=== PATIENT | male | born 1980 | race Caucasian/White ===

== ENCOUNTER 2024-03-04 23:01 | Emergency (ER) | payer MEDICAID, SELFPAY ==
[2024-03-04 23:04] VITALS: BP 130/86; PULSE 96; RESP 20; TEMP 36.9; O2SAT 98; BMI 22.8
--- NOTE | 2024-03-04 23:13 | XR_ITS ---
PROCEDURE INFORMATION: Exam: XR Right Hand Exam date and time: 03/04/2024 11:21 PM Age: 43 years old Clinical indication: Injury or trauma; Other: Crushed between fence posts; Other: Pain; Additional info: Crush to tip of 3rd digit 3 weeks ago TECHNIQUE: Imaging protocol: Radiologic exam of the right hand. Views: 3 or more views. COMPARISON: No relevant prior studies available. FINDINGS: Bones/joints: Is a crush fracture of the distal tuft 3rd finger. There is slight ventral displacement of the distal fragments noted on the lateral view. Soft tissues: Soft tissue swelling of the 3rd finger most prominent distally. Other findings: The remainder of the hand is normally aligned and intact. IMPRESSION: Crush fracture distal tuft of the 3rd finger with slight ventral displacement of the distal fragments and associated soft tissue swelling.
--- NOTE | 2024-03-04 23:16 | HMH.EDGENADL ---
Discharge Plan Disposition Patient Disposition: Home, Self-Care Prescriptions Prescriptions: New sulfamethoxazole-trimethoprim 800-160 mg tablet 2 tab PO BID 7 Days Qty: 28 0RF Referrals Follow up/Referrals: Provider,Referral, MD [Primary Care Provider] - See instructions Activity Restrictions/Add. Instructions Additional Instructions/Restrictions: Please call as soon as possible to schedule follow-up with [facility] [place] Office [address] [facility] [address] [place],?[place]?[id number] Please take antibiotics as prescribed for treatment of infection. Clinical Impressions Clinical Impression: Felon of finger of right hand, Closed fracture of tuft of distal phalanx of finger Print Language Print Language: Amharic Discharge ED Provider: Cale Bishop General Adult HPI General Chief complaint: Extremity Injury, Upper Stated complaint: Smashed right middel finger 1mo ago red & hot Time Seen by Provider: 03/04/24 23:05 History of Present Illness HPI narrative: 43-year-old male presents for severe pain and swelling of the right third digit. He reports that he smashed it approximately 3 weeks ago. He initially had some pain and swelling but it was getting better. About 2 days ago the pain got much more severe, and he had significant redness and swelling of the distal phalanx of the right third digit. He reports he does have some pain down into the hand. He denies any fevers at home. Related Data Previous Rx's ?Medication ?Instructions ?Recorded sulfamethoxazole 800 2 tab PO BID 7 days #28 tabs 03/05/24 mg-trimethoprim 160 mg tablet Allergies Allergy/AdvReac Type Severity Reaction Status Date / Time No Known Allergies Allergy Verified 03/04/24 23:25 [facility] Disclaimer: The information contained in this section may have been updated after the patient was seen, as this information can be updated by other users. Social History Smoking Status: Current every day smoker alcohol intake: never current occupational status: other Travel in the last 8 weeks: None ROS Obtained: Yes All systems reviewed & no additional complaints except as documented Physical Exam General General appearance: alert and in no apparent distress Head Head exam: atraumatic and normocephalic Eye Eye exam: Present normal appearance, PERRL and EOMI ENT ENT exam: Present normal oropharynx and normal external ear exam Neck Neck exam: Present normal inspection and full ROM Chest Chest inspection: Present normal inspection and symmetric chest wall rise; Absent tenderness Respiratory Respiratory exam: Present normal lung sounds bilaterally; Absent respiratory distress Cardiovascular Cardiovascular exam: Present regular rate and normal rhythm Abdominal Exam Abdominal exam: Present soft; Absent distention, tenderness or guarding Extremities Exam Extremities exam: Present other (Marked erythema and swelling of the right third distal phalanx. There is a hematoma under the nail bed and appearance of purulence. No significant tenderness of the flexor tendon sheath. The erythema does not extend proximally past the DIP.) Back Exam Back exam: Present normal inspection; Absent tenderness Neurological Exam Neurological exam: Present alert and oriented X3; Absent motor sensory deficit Psychiatric Psychiatric exam: Present normal affect and normal mood Skin Skin exam: Present warm, dry and normal color Lymphatic Lymphatic Findings: no adenopathy Medical Decision Making Medical Records Medical records reviewed: Yes I reviewed the patient's medical records. Screening: Per USPSTF and CDC recommendations, given the prevalence of disease in our region, it is our hospital?s policy to screen for HIV and viral Hepatitis for all patients aged 18 and over and those with ongoing risk factors. Nnamdi Inquiry Pt receiving controlled substance: No Nnamdi was queried for this patient: No Vital Signs: 03/04/24 23:04 03/04/24 23:30 03/05/24 00:00 Temperature 98.4 F Temperature Source Oral Pulse Rate 91 H 99 H Pulse Rate [Right] 96 H Respiratory Rate 20 Blood Pressure 120/76 112/81 Blood Pressure [Left Arm] 130/86 Blood Pressure Mean [Left Arm] 100 Blood Pressure Source [Left Arm] Automatic Cuff 02 Sat by Pulse Oximetry 98 97 96 Oxygen Delivery Method Room Air 03/05/24 00:52 Temperature 98.2 F Temperature Source Pulse Rate 80 Pulse Rate [Right] Respiratory Rate 18 Blood Pressure 131/80 Blood Pressure [Left Arm] Blood Pressure Mean [Left Arm] Blood Pressure Source [Left Arm] 02 Sat by Pulse Oximetry Oxygen Delivery Method Room Air Lab Data Lab results reviewed: Yes I reviewed the patient's lab results. Lab Results 03/04/24 23:16: WBC 9.2, RBC 4.86, Hgb 14.3, Hct 42.3, MCV 86.9, MCH 29.5, MCHC 33.9, RDW 13.4, Plt Count 286, MPV 7.7, Neut % (Auto) 68.6, Lymph % (Auto) 22.4, Hooker % (Auto) 4.5, Eos % (Auto) 3.4, Baso % (Auto) 1.1, Neut # (Auto) 6.3, Lymph # (Auto) 2.1, Hooker # (Auto) 0.4, Eos # (Auto) 0.3, Baso # (Auto) 0.1, ESR 14, Sodium 141, Potassium 4.0, Chloride 102, Carbon Dioxide 27, Anion Gap 16.0 H, BUN 14, Creatinine 1.10, Estimated Creat Clear 85, Estimated GFR 74, Est GFR ( Amer) 89, Glucose 110 H, Calcium 9.2, Total Bilirubin 0.4, AST 28, ALT 19, Alkaline Phosphatase 52, C-Reactive Protein 3.6, Total Protein 7.2, Albumin 4.2, Globulin 3.0, Albumin/Globulin Ratio 1.4 03/04/24 23:16 03/04/24 23:16 Orders (Tests/Meds): ED MEDICATIONS Discontinued Medications Generic Name Dose Route Start Last Admin Trade Name Arabella PRN Reason Stop Dose Admin Acetaminophen 1,000 mg 03/04/24 23:15 03/04/24 23:33 Acetaminophen 500mg Tab PO 03/04/24 23:16 1,000 mg ONCE ONE Administration Ketorolac Tromethamine 30 mg 03/04/24 23:15 03/04/24 23:33 Ketorolac 30mg/Ml Vial IV 03/04/24 23:16 30 mg ONCE ONE Administration Lidocaine HCl 10 ml 03/05/24 00:02 03/05/24 00:03 Lidocaine 1% 10ml Mdv IJ 03/05/24 00:03 10 ml ONCE ONE Administration Morphine Sulfate 4 mg 03/04/24 23:15 03/04/24 23:33 Morphine 4mg/Ml Syringe IV 03/04/24 23:16 4 mg ONCE ONE Administration Trimethoprim/Sulfamethoxazole 2 each 03/05/24 00:39 03/05/24 00:45 Sulfa/Trimethoprim 1 Tablet PO 03/05/24 00:40 2 each ONCE ONE Administration ORDERS Category Date Time Status Hand XR right minimum 3 views [XR hand RT min 3V] Stat Exams 03/04/24 23:13 Completed CBC w/Auto Diff [Complete Blood Count Auto Diff] Stat Lab 03/04/24 23:16 Completed CMP [Comprehensive Metabolic Panel] Stat Lab 03/04/24 23:16 Completed CRP [C-Reactive Protein] Stat Lab 03/04/24 23:16 Completed ESR [Erythrocyte Sedimentation Rate] Stat Lab 03/04/24 23:16 Completed Medical Decision Narrative: 43-year-old male presents with worsening right third distal phalanx redness swelling and pain. He smashed it with a hammer about 3 weeks ago. It was healing but then 2 days ago became severely red, swollen and painful.. History was obtained via interactive discussion with patient. On arrival, patient is [afebrile, hemodynamically stable, satting appropriately, alert, oriented x4, GCS 15], moving all extremities spontaneously. Full physical exam performed and significant for redness and swelling of the right third distal phalanx with subungual hematoma. Differential includes but is not limited to paronychia, felon, flexor tenosynovitis, fracture, dislocation. Patient was given Tylenol, Toradol, morphine for symptomatic management and correction of underlying abnormalities. Workup initiated including CBC CMP ESR CRP radiograph of the right hand. I performed a bedside ultrasound of the hand, I did not see a significant difference in the fluid in the flexor tendon sheath between the right second and third digits, nor did I see an abscess in the pulp of the finger. On re-evaluation, patient [remains afebrile, HD stable.] Laboratory workup independently interpreted by me and significant for normal white count, normal inflammatory markers. Imaging independently interpreted by me and significant for tuft fracture of the right third digit. See radiology read for full review of final results. Transfer for flexor tenosynovitis was considered, but deemed unnecessary due to history and exam. Exam is more consistent with severe paronychia/possible development of felon. I performed a digital block of the finger and unroofed/remove the fingernail with expression of very large volume of pus. Given the expression of pus with fingernail unroofing, I did not proceed with incising the finger pulp. Patient was given double strength Bactrim and discharged in stable condition with instructions to call Nena to schedule follow-up as soon as possible.. He was discharged with prescription for Bactrim and return precautions.. Procedures Risk/Benefits of Procedure(s) Were Explained: Yes Nerve Block Nerve Block 1: Local Anesthetic: lidocaine 1% Amount of anesthesia used (mL): 8 Side: Right Nerve Blocks: digital (Third) Procedure Successful: Yes Patient Tolerated Procedure: well and no complications Complications: none Limited Ultrasound Indication:: Limited soft tissue ultrasound Indication: This pain and swelling of distal right third finger Identified structures: Location: Left third finger Findings: No significant increase in fluid around the flexor tendon sheath compared to second digit. No apparent abscess within the distal tip Impression: Does not appear consistent with flexor tenosynovitis Images were saved to permanent archive The study was technically adequate Soft Tissue CPT Codes: CPT Upper extremity: 91529-18 CPT Other Soft Tissue: 86104-92 This study was performed by me, and I personally interpreted all images/videos. Miscellaneous Procedure Procedure Performed: Procedure: Right third digit fingernail removal, abscess drainage Indication: Infection of the right third distal phalanx Procedure description: Patient was successfully anesthetized with digital block using lidocaine. The fingernail was bluntly dissected with expression of large volume of malodorous purulent material. The wound was copiously irrigated and covered with nonadherent dressing. Procedure was successful. Critical Care Critical Care Time Critical Care Time: No
[2024-03-04 23:29] LABS: Basophils # 0.1 K/mm3 (0-0.2); Basophils % 1.1 % (0.1-2.0); Eosinophils # 0.3 K/mm3 (0.0-0.4); Eosinophils % 3.4 % (0.1-12.0); Hematocrit 42.3 % (42.0-52.0); Hemoglobin 14.3 g/dL (14.1-18.0); Lymphocytes # 2.1 K/mm3 (0.7-4.5); Lymphocytes % 22.4 % (10-50); Mean Corpuscular HGB Conc 33.9 g/dL (31.8-35.4); Mean Corpuscular Hemoglobin 29.5 pg (27.0-31.2); Mean Corpuscular Volume 86.9 fl (80-94); Mean Platelet Volume 7.7 fl (7.4-10.4); Monocytes # 0.4 K/mm3 (0.1-1.0); Monocytes % 4.5 % (1.7-9.3); Neutrophils # 6.3 K/mm3 (1.8-7.8); Neutrophils % 68.6 % (37.0-80.0); Platelet Count 286 K/mm3 (142-424); Red Blood Count 4.86 M/mm3 (4.60-6.20); Red Cell Distribution Width 13.4 % (11.5-17.5); White Blood Count 9.2 K/mm3 (4.8-10.8)
[2024-03-04 23:30] VITALS: BP 120/76; PULSE 91; O2SAT 97
[2024-03-04] MEDS: ACETAMINOPHEN 500MG TAB 1000 MG PO (23:33)
[2024-03-04] MEDS: MORPHINE 4MG/ML SYRINGE 4 MG IV (23:33)
[2024-03-04] MEDS: KETOROLAC 30MG/ML VIAL 30 MG IV (23:33)
[2024-03-04 23:35] LABS: Alanine Aminotransferase 19 U/L (12-78); Albumin Level 4.2 g/dl (3.5-5.0); Albumin/Globulin Ratio 1.4 (1.1-1.8); Alkaline Phosphatase 52 U/L (38-126); Aspartate Amino Transferase 28 U/L (17-59); Bilirubin,Total 0.4 mg/dl (0.2-1.3); Blood Urea Nitrogen 14 mg/dl (9-20); Calcium 9.2 mg/dl (8.4-10.2); Carbon Dioxide 27 mmol/L (22.0-30.0); Chloride 102 mmol/L (98-107); Creatinine Clearance Estimated 85 mL/min (50-200); Estimated Glomerular Filt Rate 74 ml/min (>60); GFR (African American) 89 ML/MIN (>60); Glucose 110 mg/dl (74-100); Sodium 141 mmol/L (136-145); Total Protein,Serum 7.2 g/dl (6.3-8.2)
[2024-03-04 23:40] LABS: C-Reactive Protein 3.6 mg/L (0-4)
[2024-03-04 23:54] LABS: Erythrocyte Sedimentation Rate 14 mm/hr (0-15)
[2024-03-05] VITALS: BP 112/81; PULSE 99; O2SAT 96
[2024-03-05] MEDS: LIDOCAINE 1% 10ML MDV 10 ML IJ (00:03)
[2024-03-05] MEDS: SULFA/TRIMETHOPRIM 1 TABLET 2 EACH PO (00:45)
[2024-03-05 00:52] VITALS: BP 131/80; PULSE 80; RESP 18; TEMP 36.8; O2SAT 98
== END 2024-03-05 00:53 | disposition home or self-care (01) ==
PROVIDERS: Emergency Provider Emergency Medicine
DX: S62.639A Displaced fracture of distal phalanx of unspecified finger, initial encounter for closed fracture (principal); L03.011 Cellulitis of right finger; M79.641 Pain in right hand; X58.XXXA Exposure to other specified factors, initial encounter; Y93.9 Activity, unspecified; Y92.9 Unspecified place or not applicable
CPT/HCPCS: 73130; 80053; 85025; 85651; 86140; 96374; 96375; 99284; J1885; J2270

== ENCOUNTER 2024-11-19 19:11 | Emergency (ER) | payer MEDICAID, SELFPAY ==
[2024-11-19] VITALS (7 sets, daily range): BP systolic 119–140; BP diastolic 70–89; PULSE 83–143; RESP 16–20; TEMP 36.6–36.9; O2SAT 94–98; BMI 23.1
--- NOTE | 2024-11-19 19:13 | ECG_ITS ---
APPROVED REPORT Exam: Resting ECG HR:143 bpm ECG Measurements Heart Rate 143 AXES AL 119 P 75 QRSd 90 QRS -81 QT 288 T 76 QTc 371 Conclusion SINUS TACHYCARDIA WITH SHORT AL INTERVAL, POSSIBLE ATRIAL FLUTTER LEFT AXIS DEVIATION [QRS AXIS < -30] Electronically signed by : MELANIE PETER, 11/19/2024 20:47:18
[2024-11-19] MEDS: LACTATED RINGERS 1000ML 1,000 ML 999 ML IV (19:31)
[2024-11-19] MEDS: ONDANSETRON 4MG/2ML VIAL 4 MG IV (19:31)
[2024-11-19 19:32] LABS: VBG HCO3 21.6 mmol/L (23-30); VBG PCO2 28.8 mmol/L (35-51); VBG PH 7.49 mmol/L (7.31-7.41); VBG PO2 89.4 mmol/L (28-40)
[2024-11-19] MEDS: diazePAM 10MG/2ML SYRINGE 2.5 MG IV (19:32)
[2024-11-19 19:33] LABS: Hematocrit 41.9 % (42.0-52.0); Hemoglobin 14.2 g/dL (14.1-18.0); Immature Granulocytes % 0.4 %; Mean Corpuscular HGB Conc 33.9 g/dL (31.8-35.4); Mean Corpuscular Hemoglobin 29.0 pg (27.0-31.2); Mean Corpuscular Volume 85.7 fl (80-94); Nucleated Red Blood Cells % 0 %; Platelet Count 325 K/mm3 (142-424); Red Blood Count 4.89 M/mm3 (4.60-6.20); Red Cell Distribution Width-SD 39.3 fL; White Blood Count 10.6 K/mm3 (4.8-10.8)
[2024-11-19 19:34] LABS: Lactate Venous 3.6 mmol/L (0.4-2.0)
[2024-11-19 19:34] LABS: Alanine Aminotransferase 19 U/L (12-78); Albumin Level 5.1 g/dl (3.5-5.0); Albumin/Globulin Ratio 1.3 (1.1-1.8); Alkaline Phosphatase 65 U/L (38-126); Anion Gap 18.8 mEq/L (5-15); Aspartate Amino Transferase 34 U/L (17-59); Bilirubin,Total 0.6 mg/dl (0.2-1.3); Blood Urea Nitrogen 14 mg/dl (9-20); Calcium 10.2 mg/dl (8.4-10.2); Carbon Dioxide 21 mmol/L (22.0-30.0); Chloride 107 mmol/L (98-107); Creatinine Clearance Estimated 67 mL/min (50-200); Creatinine,Serum 1.40 mg/dl (0.66-1.25); Estimated Glomerular Filt Rate 56 ml/min (>60); GFR (African American) 67 ML/MIN (>60); Globulin 3.8 g/dL (1.3-3.2); Glucose 116 mg/dl (74-100); Lipase 89 U/L (23-300); Potassium 3.8 mmoL/L (3.5-5.1); Sodium 143 mmol/L (136-145); Total Protein,Serum 8.9 g/dl (6.3-8.2)
--- NOTE | 2024-11-19 19:36 | ED_ITS ---
Discharge Plan Disposition Patient Disposition: Home, Self-Care Condition: Good Prescriptions Prescriptions: No Action sulfamethoxazole-trimethoprim 800-160 mg tablet 2 tab PO BID 7 Days Qty: 28 0RF Referrals Follow up/Referrals: Provider,Referral, [Primary Care Provider, Medical] - See instructions Activity Restrictions/Add. Instructions Additional Instructions/Restrictions: You were evaluated in the emergency department today. We recommended staying for second troponin or heart enzyme to make sure that there was no evidence of heart attack or acute cardiac issues as a cause of your pain. You elected to leave AGAINST MEDICAL ADVICE without obtaining a second heart enzyme. You do have elevation in your CK, which is a muscle enzyme indicating stress on your muscles, and a mild elevation in your creatinine or kidney function that suggests some mild kidney injury. Please stay hydrated. It is very important that you follow-up closely with your primary care provider. Return to the emergency department right away for new or worsening symptoms. Clinical Impressions Clinical Impression: Chest pain, Heat exposure, Rhabdomyolysis, VÍCTOR (acute kidney injury), Lung nodule Stand Alone Forms Stand Alone Forms: Work/School Release Instructions Patient Instructions: Acute Kidney Injury, DI for Atypical Chest Pain, DI for Chest Pain, DI for Rhabdomyolysis Print Language Print Language: Somali Discharge ED Provider: April Coe HPI General Chief Complaint: Chest Pain Stated Complaint: Chest Pain Time Seen by Provider: 11/19/24 19:16 Mode of Arrival: EMS Source of Information: Patient and EMS Description of Symptoms (Recalled from ER Triage Doc. by RN): Patient states he has been working outside all day. He states he started having CP on a scale of 10/10 that started around 45 minutes prior to arrival. States it was a sharp chest pain and he had some nausea with it. Has had 324 aspirin and 1 nitro that help bring his pain down to 8/10. History of Present Illness HPI narrative: This patient is a 44-year-old male who denies significant past medical history presenting to the emergency department for evaluation with concern for left- sided chest pain that started approximately 45 minutes prior to arrival. According to the patient and his , he had been working outside in the heat all day cleaning out a shed when he developed left-sided chest pain that radiates across the right side. He states that it feels similar to when he had rib fractures in the past back in 2017. He notes that his chest feels very tender. He arrives very anxious appearing, actively hyperventilating. He arrives by EMS who noted that he has been tachycardic en route. They administered aspirin and nitroglycerin which brought his pain from 10 out of 10 to 8 out of 10. On review of systems, he notes associated nausea, vomiting, and shortness of breath that started after the chest pain but denies any other concerns or complaints. He denies any recent falls or injury. He denies any history of alcohol or drug use. He is a tobacco user. He denies any significant cardiac history Related Data Previous Rx's ?Medication ?Instructions ?Recorded sulfamethoxazole 800 2 tab PO BID 7 days #28 tabs 03/05/24 mg-trimethoprim 160 mg tablet Allergies Allergy/AdvReac Type Severity Reaction Status Date / Time No Known Allergies Allergy Verified 03/04/24 23:25 [facility] Disclaimer: The information contained in this section may have been updated after the patient was seen, as this information can be updated by other users. Social History Smoking Status: Current every day smoker alcohol intake: never current occupational status: other Travel in the last 8 weeks?: None Have you lived/traveled outside [place] in past 30 days?: No Contact w/someone who lives/traveled outside [place] past 30 days?: No Exposure to someone with infectious disease in past 14 days?: No Do you have a fever (greater than 100.4 F or 38 C)?: No Have you tested positive for COVID-19?: No Exposed to someone with COVID-19 in past 14 days?: No Do you have a sore throat?: No Do you have a cough?: No Do you have any weakness?: No Do you have any diarrhea?: No Are you experiencing any unusual bleeding?: No Do you have any muscle aches/pain?: No Do you have any abdominal pain?: No Are you experiencing loss of taste or smell?: No ROS Obtained: Yes All systems reviewed & no additional complaints except as documented Physical Exam General General appearance: alert and anxious Head Head exam: atraumatic and normocephalic Eye Eye exam: Present normal appearance, PERRL and EOMI ENT ENT exam: Present normal exam, normal oropharynx, mucous membranes moist and normal external ear exam Neck Neck exam: Present normal inspection, full ROM and trachea midline; Absent tenderness Chest Chest inspection: Present symmetric chest wall rise and tenderness (Left side. No palpable crepitus, no step-offs, no notable bruising) Respiratory Respiratory exam: Present normal lung sounds bilaterally; Absent respiratory distress, wheezes, stridor or accessory muscle use Cardiovascular Cardiovascular exam: Present normal rhythm and tachycardia Abdominal Exam Abdominal exam: Present soft; Absent distention, tenderness or guarding Extremities Exam Extremities exam: Present normal inspection, full ROM and normal capillary refill; Absent tenderness or edema Back Exam Back exam: Present normal inspection and full ROM; Absent tenderness Neurological Exam Neurological exam: Present alert, oriented X3, CN II-XII intact and normal gait; Absent motor sensory deficit Psychiatric Psychiatric exam: Present anxious Skin Skin exam: Present warm and dry HEART Score HEART Score HEART Score assessment performed?: Yes History (anamnesis): Slightly suspicious ECG: Non-specific disturbance Age: <45 years Risk factors: No known risk factors Troponin: </= normal limit HEART Score: 1 Critical Care Critical Care Time Critical Care Time: No Medical Decision Making Nnamdi Inquiry Pt receiving controlled substance: No Vital Signs Vital Signs: 11/19/24 19:19 11/19/24 19:23 11/19/24 19:30 Temperature 98.5 F Temperature Source Oral Pulse Rate 143 H 91 H Pulse Rate [Right Radial] 138 H Respiratory Rate 16 18 Blood Pressure 131/83 Blood Pressure [Right Arm] 119/70 Blood Pressure Mean [Right Arm] 86 Blood Pressure Source Blood Pressure Source [Right Arm] Automatic Cuff Blood Pressure Position Blood Pressure Position [Right Arm] Supine 02 Sat by Pulse Oximetry 98 94 L Oxygen Delivery Method Nasal Cannula Oxygen Flow Rate (LPM) 3 11/19/24 20:00 11/19/24 20:30 11/19/24 20:46 Temperature Temperature Source Pulse Rate 114 H 83 Pulse Rate [Right Radial] Respiratory Rate 16 20 Blood Pressure 136/81 140/86 Blood Pressure [Right Arm] Blood Pressure Mean [Right Arm] Blood Pressure Source Blood Pressure Source [Right Arm] Blood Pressure Position Blood Pressure Position [Right Arm] 02 Sat by Pulse Oximetry 95 97 98 Oxygen Delivery Method Room Air Oxygen Flow Rate (LPM) 11/19/24 21:18 Temperature 97.9 F Temperature Source Oral Pulse Rate 103 H Pulse Rate [Right Radial] Respiratory Rate 16 Blood Pressure 126/89 Blood Pressure [Right Arm] Blood Pressure Mean [Right Arm] Blood Pressure Source Automatic Cuff Blood Pressure Source [Right Arm] Blood Pressure Position Supine Blood Pressure Position [Right Arm] 02 Sat by Pulse Oximetry Oxygen Delivery Method Room Air Oxygen Flow Rate (LPM) Lab Data Labs: Lab Results 11/19/24 19:04: WBC 10.6, RBC 4.89, Hgb 14.2, Hct 41.9 L, MCV 85.7, MCH 29.0, MCHC 33.9, RDW 12.6, Plt Count 325, MPV 10.1, Neut % (Auto) 69.6, Lymph % (Auto) 19.7, [place] % (Auto) 9.2, Eos % (Auto) 0.5, Baso % (Auto) 0.6, Neut # (Auto) 7.4, Lymph # (Auto) 2.1, [place] # (Auto) 1.0, Eos # (Auto) 0.1, Baso # (Auto) 0.1, PT 11.0, INR 0.99, APTT 25.1, D-Dimer 0.42, Sodium 143, Potassium 3.8, Chloride 107, Carbon Dioxide 21 L, Anion Gap 18.8 H, BUN 14, Creatinine 1.40 H, Estimated Creat Clear 67, Estimated GFR 56 L, Est GFR ( Amer) 67, Glucose 116 H, Calcium 10.2, Magnesium 1.7, Total Bilirubin 0.6, AST 34, ALT 19, Alkaline Phosphatase 65, Total Creatine Kinase 321 H, Troponin I < 0.01, Total Protein 8.9 H, Albumin 5.1 H, Globulin 3.8 H, Albumin/Globulin Ratio 1.3, Lipase 89, TSH 1.09, Thyroxine (T4) 9.6, Plasma/Serum Alcohol < 10, HCV Ab IVELISSE w/Rflx PCR Qn Negative, HIV Ag/Ab Combo Qual Negative 11/19/24 19:27: VBG pH 7.49 H, VBG pCO2 28.8 L, VBG pO2 89.4 H, VBG HCO3 21.6 L, VBG Total CO2 22.5 L, VBG O2 Saturation 97.5 H, VBG Base Excess -1.7, VBG Lactic Acid 3.6 H 11/19/24 19:04 11/19/24 19:04 Response Orders (Tests/Meds): ED MEDICATIONS Discontinued Medications Generic Name Dose Route Start Last Admin Trade Name Arabella PRN Reason Stop Dose Admin Diazepam 2.5 mg 11/19/24 19:30 11/19/24 19:32 Diazepam 10mg/2ml Syringe IV 11/19/24 19:31 2.5 mg ONCE ONE Administration Lactated Ringer's 1,000 mls @ 999 mls/hr 11/19/24 19:20 11/19/24 19:31 Lactated Ringer's 1000 Ml Bag IV 11/19/24 20:20 999 mls/hr .Q1H1M ONE Administration Ondansetron HCl 4 mg 11/19/24 19:20 11/19/24 19:31 Ondansetron 4mg/2ml Vial IV 11/19/24 19:21 4 mg ONCE ONE Administration Sodium Chloride 10 ml 11/19/24 19:20 Sodium Chloride 0.9% 10ml Vial IV 12/19/24 19:19 NEEDED PRN to Dilute Lorazepam inj ORDERS Category Date Time Status CXR 2 view (NOT portable) [XR chest 2V] Stat Exams 11/19/24 19:45 Completed CK [Creatine Kinase] Stat Lab 11/19/24 19:04 Completed Complete Blood Count Auto Diff Stat Lab 11/19/24 19:04 Completed Comprehensive Metabolic Panel Stat Lab 11/19/24 19:04 Completed D-Dimer Stat Lab 11/19/24 19:04 Completed Ethanol [Ethyl Alcohol] Stat Lab 11/19/24 19:04 Completed HIV Combo Stat Lab 11/19/24 19:04 Completed Hepatitis C Ab Qual. W/ RFX Stat Lab 11/19/24 19:04 Completed Lipase Stat Lab 11/19/24 19:04 Completed MAG [Magnesium] Stat Lab 11/19/24 19:04 Completed PT INR [Prothrombin Time INR] Stat Lab 11/19/24 19:04 Completed PTT [Activated Partial Thrombo Time] Stat Lab 11/19/24 19:04 Completed T4 (Thyroxine) Stat Lab 11/19/24 19:04 Completed TSH [Thyroid Stimulating Hormone] Stat Lab 11/19/24 19:04 Completed Trop I [Troponin I] Stat Lab 11/19/24 19:04 Completed VBG [Venous Blood Gas] Stat RT 11/19/24 19:27 Completed ECG Data Tracing #1: Attestation: I reviewed this ECG and interpreted as documented below: ECG Narrative: Sinus tachycardia with a ventricular rate of [address] changes concerning for ischemia. ECG initial impression date: 11/19/24 ECG initial impression time: 19:15 MDM Narrative Medical Decision Narrative: In summary, this patient is a 44-year-old male presenting to the Emergency Department for evaluation of chest pain that started approximately 45 minutes prior to arrival. Differential diagnoses considered include but are not limited to musculoskeletal strain/pain, heat exposure, heat exhaustion, ACS, dysrhythmia, PE, aortic dissection, musculoskeletal strain/sprain. Ruling out the most morbid conditions drove assessment. It should be noted patient's history includes tobacco use which is not at goal therapy. This complicates all aspects of care by increasing patient's risk for morbidity. On exam, the patient is very anxious appearing, actively hyperventilating. He had arrived on nasal cannula from EMS for comfort, but O2 saturation was normal on room air once weaned. He is hypertensive and tachycardic. Cardiopulmonary exam is benign. He does have significant left-sided chest tenderness. Abdominal exam is benign. Workup included CBC, CMP, troponin, D-dimer, VBG, CK, lipase, coags, TSH, T4, magnesium, ethanol level, urine drug screen, chest x- ray, EKG. EKG demonstrates sinus tachycardia without acute STEMI. Patient was given a bolus of IV fluids as well as IV Valium and Zofran for symptomatic improvement.. I independently interpreted chest x-ray prior to the radiologist read and noted no pneumothorax, no large focal consolidation, no displaced rib fractures. Please see their read for final interpretation. Labs were obtained that demonstrated reassuring CBC with no significant leukocytosis or anemia. Chemistry demonstrates mildly elevated anion gap, slightly low CO2, mild VÍCTOR with a creatinine of 1.4, and mildly elevated CK at 321. I feel he likely had significant heat exposure and overworked himself causing mild rhabdomyolysis, VÍCTOR, and current presentation. Feel he likely was having muscle spasms upon arrival given the reproducible nature of his pain and tenderness. VBG obtained demonstrated a respiratory alkalosis, consistent with hyperventilation noted on initial assessment. On reassessment, patient had great improvement after administration of interventions above. His vitals are now normal on cardiac telemetry with heart rate in the high 90s to low 100s as opposed to 130s to 140s when he got here. I recommended staying for second troponin for continued monitoring and fluids, however the patient and his noted that they do not want to stay, as they are hungry and want to go home. I advised that I do not feel that discharge is appropriate without obtaining a second troponin to exclude acute cardiac dysfunction given the sudden onset of chest pain prior to arrival. Patient and expressed understanding and agreement and demonstrated good insight and understanding, but they think that he is fine and do not want him to stay for a second troponin. Given this, he was discharged via patient directed discharge. Read came back after discharge concerning for lung nodule, recommended nonemergent CT follow up. I attempted to call patient and notify him, but he did not answer.
[2024-11-19 19:39] LABS: D-Dimer 0.42 ug/mL (0.0-0.5)
--- NOTE | 2024-11-19 19:45 | XR_ITS ---
PROCEDURE INFORMATION: Exam: XR Chest Exam date and time: 11/19/2024 7:43 PM Age: 44 years old Clinical indication: Pain; Left-sided; Additional info: Chest pain TECHNIQUE: Imaging protocol: Radiologic exam of the chest. Views: 2 views. COMPARISON: No relevant prior studies available. FINDINGS: Lungs: 1.4 cm density projected over right upper lung zone. No consolidation. Pleural spaces: Unremarkable. No pleural effusion. No pneumothorax. Heart/Mediastinum: Unremarkable. No cardiomegaly. Bones/joints: Old right rib fracture. No acute findings. IMPRESSION: Nonspecific right upper lung zone density. Nodule/mass versus summation artifact in differential considerations. Consider nonurgent CT scan for further imaging correlation.
[2024-11-19 19:57] LABS: Troponin I < 0.01 ng/ml (0.00-0.034)
[2024-11-19 20:15] LABS: Activated Partial Thrombo Time 25.1 seconds (22.8-30.6); INR 0.99 (0.9-1.1); Prothrombin Time 11.0 seconds (10.1-12.5)
[2024-11-19 20:20] LABS: Creatine Kinase 321 U/L (55-170); Magnesium 1.7 mg/dl (1.6-2.3)
[2024-11-19 20:38] LABS: T4 (Thyroxine) 9.6 ug/dl (5.53-11.0)
[2024-11-19 20:52] LABS: Thyroid Stimulating Hormone 1.09 uIU/mL (0.465-4.68)
[2024-11-19 21:09] LABS: Hepatitis C Ab Qual. W/ RFX NEGATIVE (Negative)
== END 2024-11-19 21:20 | disposition home or self-care (01) ==
PROVIDERS: Emergency Provider Emergency Medicine
DX: R07.9 Chest pain, unspecified (principal); R06.4 Hyperventilation; M62.82 Rhabdomyolysis; R00.0 Tachycardia, unspecified; R11.2 Nausea with vomiting, unspecified; R91.1 Solitary pulmonary nodule; N17.9 Acute kidney failure, unspecified; T67.9XXA Effect of heat and light, unspecified, initial encounter; F17.210 Nicotine dependence, cigarettes, uncomplicated
CPT/HCPCS: 71046; 80053; 80320; 82550; 82803; 83690; 83735; 84436; 84443; 84484; 85025; 85378; 85610; 85730; 86803; 87389; 93005; 96361; 96374; 96375; 99285; J2405; J3360; J7120